=== PATIENT | female | born 1975 | race Caucasian/White ===

== ENCOUNTER 2017-03-21 13:30 | Emergency (ER) | payer BC ==
[~2017-03-21] VITALS: Ht 152.4 cm; Wt 68.0 kg
--- NOTE | 2017-03-21 13:55 | NUR ---
PLACED ON STANDARD MACHINE STITCHER. PATIENT STATES SHE HAD HER GALLBLADDER REMOVED 2 MONTHS AGO AND HAS HAD PAIN SINCE.
[2017-03-21] MEDS ORDERED: PANTOPRAZOLE SODIUM 40 MG VIAL IV ONE (14:30)
[2017-03-21 14:47] LABS: BASOPHILS % (AUTO) 0.3 % (0.0-2.0); EOSINOPHILS # (AUTO) 0.1 K/uL (0.0-0.7); EOSINOPHILS % (AUTO) 0.9 % (0.0-7.0); HEMATOCRIT 38.7 % (37-47); HEMOGLOBIN 12.8 G/DL (12.0-16.0); LYMPHOCYTES # (AUTO) 1.8 K/UL (0.8-4.8); LYMPHOCYTES % (AUTO) 15.3 % (20.5-51.5); MEAN CORPUSCULAR HEMOGLOBIN 29.4 UUG (27.0-31.0); MEAN CORPUSCULAR HGB CONC 33 g/dL (32.0-37.0); MEAN CORPUSCULAR VOLUME 88.5 FL (81.0-99.0); MONOCYTES # (AUTO) 1.4 K/UL (0.1-1.30); MONOCYTES % (AUTO) 12.4 % (0.0-11.0); NEUTROPHILS # (AUTO) 8.2 K/UL (1.8-8.9); NEUTROPHILS % (AUTO) 71.1 % (38.5-71.5); PLATELET COUNT (AUTO) 277 K/UL (150-450); RED BLOOD CELL COUNT(AUTO) 4.37 MIL/UL (4.2-5.4); WHITE BLOOD COUNT (AUTO) 11.5 K/UL (4.0-11.2)
[2017-03-21 14:49] LABS: CREATININE 0.8 mg/dL (0.6-1.3); POTASSIUM 3.7 mmol/L (3.5-5.1)
[2017-03-21] MEDS ORDERED: PANTOPRAZOLE SODIUM 40 MG VIAL ONE (14:50)
[2017-03-21 15:00] LABS: BILIRUBIN,DIRECT 0.1 mg/dL (0.0-0.2); BILIRUBIN,TOTAL 0.5 mg/dL (0.2-1.0); TOTAL PROTEIN, SERUM 7.9 g/dL (6.4-8.2)
--- NOTE | 2017-03-21 15:22 | NUR ---
AWAITING TEST RESULTS. PATIENT IS AWAKE AND ALERT WITH O NEW COMPLAINTS.
--- NOTE | 2017-03-21 16:17 | NUR ---
PATIENT STATES PAIN HAS DIMINIHSED SOME. IV DC'D, CATHETER TIP INTACT, PRESSURE APPLIED, DRESSING APPLIED. DC,RX AND FOLLOW UP INSTRUCTIONS GIVEN AND EXPLAINED TO PATIENT WHO STATES SHE UNDERSTANDS ALL INSTRUCTIONS.
[2017-03-21 16:24] VITALS: BP 119/55
== END 2017-03-21 16:24 | disposition home or self-care (01) ==
LOC: ER 13:30
DX: R10.9 Unspecified abdominal pain (principal)
CPT/HCPCS: 36415; 83690; 84703; 85025; A4663; C9113; J7060